=== PATIENT | female | born 1975 | race African-American/Black ===

== ENCOUNTER 2018-04-12 10:37 | Observation (INO) | payer OTHER ==
[2018-04-09 13:10] LABS: BASOPHILS % 0.7 % (0.0-1.0); EOSINOPHILS # (AUTO) 0.1 (0.0-0.4); EOSINOPHILS % 1.2 % (0.0-6.0); HEMATOCRIT 39.9 % (34.2-44.1); HEMOGLOBIN 12.8 g/dL (12.0-16.0); LYMPHOCYTES # (AUTO) 2.5 (1.0-3.2); LYMPHOCYTES % 43.4 % (18.0-39.1); MEAN CORPUSCULAR HEMOGLOBIN 27.8 pg (28-32); MEAN CORPUSCULAR HGB CONC 32.1 g/dL (31-35); MEAN CORPUSCULAR VOLUME 86.6 fL (81-99); MONOCYTES # (AUTO) 0.4 (0.2-0.8); MONOCYTES % 7.4 % (4.4-11.3); NEUTROPHILS # (AUTO) 2.7 (2.1-6.9); NEUTROPHILS % 46.9 % (38.7-80.0); PLATELET COUNT 274 x10e3/uL (140-360); RED BLOOD COUNT 4.61 x10e6/uL (3.6-5.1); RED CELL DISTRIBUTION WIDTH 13.8 % (11.7-14.4)
[2018-04-09 13:11] LABS: CLARITY,URINE SL CLOUDY (CLEAR); COLOR,URINE YELLOW (YELLOW)
[2018-04-09 13:12] LABS: BILIRUBIN,URINE NEGATIVE (NEGATIVE); KETONES,URINE NEGATIVE (NEGATIVE); LEUKOCYTE ESTERASE ,URINE NEGATIVE (NEGATIVE); NITRITE,URINE NEGATIVE (NEGATIVE); PROTEIN,URINE DIPSTICK NEGATIVE (NEGATIVE); URINE UROBILINOGEN 0.2 mg/dL (0.2 - 1)
[2018-04-09 13:27] LABS: ANION GAP 12.5 mmol/L (8-16); BLOOD UREA NITROGEN 12 mg/dL (7-26); BUN/CREATININE RATIO 15 (6-25); CARBON DIOXIDE 27 mmol/L (22-29); CHLORIDE 102 mmol/L (98-107); CREATININE, SERUM 0.81 mg/dL (0.57-1.11); EST GLOMERULAR FILTRATION RATE > 60 ML/MIN (60-); GLUCOSE 94 mg/dL (74-118); POTASSIUM 3.5 mmol/L (3.5-5.1); SODIUM 138 mmol/L (136-145)
[~2018-04-12] VITALS: Ht 167.6 cm; Wt 86.2 kg
[~2018-04-12 10:37] MED LIST: ACTOPLUS MET 11 EACH PO; AMLODIPINE BESY10 MG PO; ASPIRIN81 MG PO; ATORVASTATIN CA40 MG PO; LISINOPRIL40 MG PO; METFORMIN HCL500 MG PO; TANZEUM SQ; TRULICITY INJ; VITAMIN D3 PO
[2018-04-12] MEDS ORDERED: CEFAZOLIN SOD 1 GM/NS 50ML 100 ML IV ONE (10:59)
[2018-04-12] MEDS ORDERED: ESTROGENS CONJUGATED VAGINAL CR 45 GM TUBE PV ONE (12:06)
[2018-04-12] MEDS ORDERED: BUPIVACAINE 0.25%/EPI 30ML SDV INJ ONE (12:06)
[2018-04-12] MEDS ORDERED: VASOPRESSIN INJ 20 UNIT/ML VIAL IV ONE (12:45)
[2018-04-12] MEDS ORDERED: ONDANSETRON HCL INJ 2MG/ML 2ML 2 MG/ML VIAL ONE (15:26)
[2018-04-12] MEDS ORDERED: DEXAMETHASONE SOD PHOS INJ 4 MG/ML VIAL ONE (15:26)
[2018-04-12] MEDS ORDERED: PROPOFOL IV EMULSION 10 MG/ML 20 ML VIAL ONE (15:26)
[2018-04-12] MEDS ORDERED: SEVOFLURANE INHAL SOLN 250 ML PEN BTL ONE (15:26)
[2018-04-12] MEDS ORDERED: ROCURONIUM BROMIDE 10 MG/ML 5ML VIAL ONE (15:26)
[2018-04-12] MEDS ORDERED: PHENYLEPHRINE HCL 1% 10 MG/ML VIAL ONE (15:26)
[2018-04-12] MEDS ORDERED: MORPHINE SULFATE 1 MG/ML 30ML PCA IV PRN (16:00)
[2018-04-12] MEDS ORDERED: KETOROLAC TROMETHAMINE 30 MG/ML VIAL IV PRN (16:00)
[2018-04-12] MEDS ORDERED: DIPHENHYDRAMINE HCL 25 MG CAP PO PRN (16:00)
[2018-04-12] MEDS ORDERED: DOCUSATE SODIUM 100 MG CAP PO PRN (16:00)
[2018-04-12] MEDS ORDERED: ONDANSETRON HCL INJ 2MG/ML 2ML 2 MG/ML VIAL IV PRN (16:00)
[2018-04-12] MEDS ORDERED: ACETAMINOPHEN 325 MG TAB PO PRN (16:00)
[2018-04-12] MEDS ORDERED: SIMETHICONE 80 MG CHEW PO PRN (16:00)
[2018-04-12] MEDS ORDERED: NALOXONE HCL INJ 0.4 MG/ML AMP IV PRN (16:00)
[2018-04-12] MEDS ORDERED: BISACODYL 10 MG SUPP PR PRN (16:00)
[2018-04-12] MEDS ORDERED: FENTANYL CITRATE/PF 100MCG/2 ML INJ ONE ×2 (16:21→18:18)
[2018-04-12] MEDS ORDERED: INSULIN REGULAR, HUMAN 100 UNIT/1 ML 3ML VIAL ONE (16:37)
[2018-04-12] MEDS ORDERED: MORPHINE SULFATE 1 MG/ML 30ML PCA ONE (16:42)
[2018-04-12] MEDS ORDERED: DEXTROSE 50% SYRINGE 50 ML IV PRN (17:00)
[2018-04-12] MEDS: METFORMIN HCL 500 MG TAB PO SCH (17:00)
[2018-04-12 17:47] VITALS: BP 124/72
[2018-04-12 18:05] VITALS: BP 124/72
[2018-04-12] MEDS: LACTATED RINGER'S 1,000 ML IV SCH ×2 (18:17→23:53)
[2018-04-12 20:00] VITALS: BP 111/67
--- NOTE | 2018-04-12 20:36 | NUR ---
Thigh high ALEXANDRA applied to both lower extremities. Abdominal binder is too big for patient, size not available.
[2018-04-12] MEDS: INSULIN REGULAR, HUMAN 100 UNIT/1 ML 3ML VIAL SQ SCH (21:00)
[2018-04-12 21:26] VITALS: BP 111/67
[2018-04-12] MEDS: CEFAZOLIN SOD 2 GM/D5W 50ML 50 ML IV SCH (22:00)
[2018-04-12] MEDS ORDERED: CEFAZOLIN SOD 1 GM VIAL IV SCH (22:00)
--- NOTE | 2018-04-12 23:09 | NUR ---
Encourage to use incentive spirometry and do breathing and coughing exercises when awake. Patient assisted in turning.
[2018-04-13] VITALS: BP 103/60
--- NOTE | 2018-04-13 00:51 | Operative Report ---
DATE OF PROCEDURE: 04/12/2018 SURGEON: Liam Ontiveros MD PREOPERATIVE DIAGNOSES: Dysmenorrhoea, large fibroid uterus, anemia, diabetes, and hypertension. POSTOPERATIVE DIAGNOSES: Dysmenorrhoea, large fibroid uterus, anemia, diabetes, and hypertension. TITLE OF PROCEDURE: Total laparoscopic hysterectomy and bilateral salpingectomy. [employer] JONES: Kennedy Healy MD. ANESTHESIA: General with Dr. Schwartz. INDICATIONS FOR THE OPERATION: The patient is a 42-year-old 3, para 2-0-1-2, status post tubal ligation in 2003, presents with history of a large fibroid uterus that was 18- to 20-week size 4 months ago causing lots of dysmenorrhoea and pelvic pain. She also had anemia with a hemoglobin down to 10 or so. She was given Lupron for 4 months. Uterine size decreased to 12- to 14-week size and she is here for total laparoscopic hysterectomy, possible laparoscopically assisted vaginal hysterectomy and possible total abdominal hysterectomy. Bilateral salpingectomy is planned. The patient does not desire oophorectomy. She is therefore taken to the operating room at this time. FINDINGS OF SURGERY: There was 12- to 14-week size nodular uterus with a 5 cm right lateral fibroid which was subserosal and even to an extent pedunculated. The tubes and ovaries were within normal limits. The uterus was very mobile. DESCRIPTION OF PROCEDURE: The patient was taken to the operating room and placed on the table in the supine position. General anesthesia was administered. The patient was then placed in the lithotomy position. The perineum was prepared and draped in the usual sterile manner as was the abdomen. Pelvic exam revealed a 12- to 14-week size nodular mobile uterus with no adnexal masses except for the right 5-cm fibroid. A Lopez catheter had been placed in the bladder for constant drainage and then the cervix was grasped with a single tooth tenaculum and the VCare was placed in the cervical canal up to a depth of 8 cm after dilation with Rose dilator. The balloon was inflated up to 7 mL and it was then draped for manipulation. The tenaculum was removed and we proceeded to laparoscopy. The acid pump operator changed gloves. Small incision was made just superior to the umbilicus in the midline. The trocar and scope were inserted through the incision into the peritoneal cavity under direct visualization and pneumoperitoneum was created by insufflation of 4 L of carbon dioxide gas and a filling pressure of 8-10 mmHg. Then, second a trocar was placed through a left lower quadrant incision under direct visualization by laparoscopy and the third trocar was placed in the right lower quadrant under direct visualization by laparoscopy. We then visualized the uterus, tubes, and ovaries. The ovaries were within normal limits. The tubes were within normal limits except for status post tubal ligation and the uterus was enlarged, 12- to 14-week size with a 5 cm pedunculated subserosal right-sided myoma. At this point, attention was turned to the left adnexa. The left tube was grasped and the mesosalpinx was then clamped, cauterized twice with a LigaSure instrument and then cut and then the mesosalpinx was further clamped, coagulated, and cut using the LigaSure instrument. We then reached the round ligament, which was clamped, coagulated, and cut. There was good hemostasis in evidence. At this point, we were able to clamp, coagulate, and cut the utero-ovarian ligament and then we opened the anterior peritoneum using the LigaSure instrument, clamping, coagulating, and cutting from round ligament to round ligament, and then with gentle dissection, we dissected the bladder down out of the way. At this point, attention was turned to the right side, where the right tube was grasped and the mesosalpinx was clamped, coagulated twice, and cut using the LigaSure instrument. Then, we took further bites down the mesosalpinx, clamping, coagulating, and cutting to reach the round ligament, which was clamped, coagulated and cut. At this side, we were then able to open the peritoneum anteriorly to where we had joined the previous incision from the left side and we were able to use the laparoscopic tenaculum to grab the fibroid and pull it out of the way for better visualization. At this point, we were able to identify the uterine vessels on each side. We clamped, coagulated multiple times, and cut with the LigaSure instrument. Good hemostasis was evident at the uterine vessels. We pushed up with the VCare. We were able to identify the vaginal cuff. We were able to push the bladder out of the way and dissecting along the lines of the cup. We were able to cut away all the uterine attachments to the peritoneal cavity and to the uterosacral ligaments. Once the uterus was completely free, we removed the VCare and grasped the cervix with 2 Chapin, and at this point, we brought it out partially and then going vaginally, we were able to grasp the fundus of the uterus with a tenaculum and pulled the uterus out gently and brought it out in total with the tubes, uterus, and fibroids. This was then sent to pathology for definitive diagnosis. At this point, we all switched gown and gloves and we proceeded to close the vaginal cuff laparoscopically. The pneumoperitoneum was reinserted. Prior to leaving the vagina, we had placed a bulb suction to obstruct the air coming out of the peritoneal cavity. At this point, Dr. Healy used the Endo Stitch and stitched the vaginal cuff posterior to anterior placing his stitches and tying them off and 5 stitches were required to close the cuff. There was good hemostasis in evidence of the cuff. We then irrigated and then suctioned. At this point, we filled the bladder through the Lopez catheter with saline and observed the inflation laparoscopically. There was no evidence of any urinary leakage and the bladder was able to fill completely, and then Dr. Healy proceeded with cystoscopy. Using the laparoscope, he visualized the entire bladder and found no evidence of any injury to the bladder and then it took us about 10 minutes watching the ureters, but we did see bilateral spillage of urine from the ureters. Both ureters appeared patent, and at this point, we proceeded to close. Dr. Healy irrigated the vagina and placed a new Lopez catheter and then I proceeded to close the skin incisions. First, we removed all air and instruments from the abdomen, then the skin incisions were closed with inverted stitches of 4-0 Monocryl suture. There were no complications noted. Estimated blood loss was 100 mL. The patient tolerated the procedure well, was transferred from the operating room to the recovery room in stable condition. Liam Ontiveros MD [facility] /[id number] cc: Salvador Perales MD MTDD
[2018-04-13 04:00] VITALS: BP 124/72
[2018-04-13] MEDS: CEFAZOLIN SOD 2 GM/D5W 50ML 50 ML IV SCH ×2 (05:51→12:34)
--- NOTE | 2018-04-13 05:51 | NUR ---
D/C simental as ordered.
[2018-04-13 06:39] LABS: BASOPHILS % 0.2 % (0.0-1.0); HEMATOCRIT 34.9 % (34.2-44.1); HEMOGLOBIN 11.5 g/dL (12.0-16.0); LYMPHOCYTES # (AUTO) 1.2 (1.0-3.2); LYMPHOCYTES % 12.1 % (18.0-39.1); MEAN CORPUSCULAR HEMOGLOBIN 28.4 pg (28-32); MEAN CORPUSCULAR VOLUME 86.2 fL (81-99); MONOCYTES # (AUTO) 0.6 (0.2-0.8); MONOCYTES % 5.9 % (4.4-11.3); NEUTROPHILS # (AUTO) 8.1 (2.1-6.9); NEUTROPHILS % 81.4 % (38.7-80.0); PLATELET COUNT 248 x10e3/uL (140-360); RED BLOOD COUNT 4.05 x10e6/uL (3.6-5.1); RED CELL DISTRIBUTION WIDTH 13.9 % (11.7-14.4)
[2018-04-13 07:05] LABS: ANION GAP 13.3 mmol/L (8-16); BLOOD UREA NITROGEN 8 mg/dL (7-26); BUN/CREATININE RATIO 9 (6-25); CALCIUM 9.1 mg/dL (8.4-10.2); CARBON DIOXIDE 24 mmol/L (22-29); CHLORIDE 102 mmol/L (98-107); CREATININE, SERUM 0.86 mg/dL (0.57-1.11); EST GLOMERULAR FILTRATION RATE > 60 ML/MIN (60-); GLUCOSE 135 mg/dL (74-118); POTASSIUM 4.3 mmol/L (3.5-5.1); SODIUM 135 mmol/L (136-145)
[2018-04-13] MEDS: INSULIN REGULAR, HUMAN 100 UNIT/1 ML 3ML VIAL SQ SCH ×2 (07:30→11:30)
[2018-04-13 08:36] VITALS: BP 121/63
[2018-04-13] MEDS ORDERED: NON-FORMULARY MEDICATION (Lisinopril 20 MG) PO SCH (09:00)
[2018-04-13] MEDS ORDERED: AMLODIPINE BESYLATE 10 MG TAB PO SCH (09:00)
[2018-04-13] MEDS ORDERED: LISINOPRIL 20 MG TAB PO SCH (09:00)
[2018-04-13 09:30] VITALS: BP 121/63
[2018-04-13] MEDS: METFORMIN HCL 500 MG TAB PO SCH (09:30)
--- NOTE | 2018-04-13 09:30 | NUR ---
assessment complete no distress noted, updated on poc vocied understanding, denies pain at this time, ivf infusing to l fa 20g no ss of infiltration noted, pt up to bathroom with assistance, voided clear yellow urine, 3 trochar sites to abdomen c/d/i, no other co voiced call light in reach will continue ot monitor
[2018-04-13] MEDS ORDERED: NAPROXEN 250 MG TAB PO PRN (10:15)
[2018-04-13] MEDS ORDERED: NAPROXEN250 MG PO (12:27)
[2018-04-13 12:41] VITALS: BP 120/77
== END 2018-04-13 14:54 | disposition home or self-care (01) ==
LOC: OR 10:37 → PACU V 16:13 → MED/SURG 17:31
PROVIDERS: ADMIT Obstetrics & Gynecology; ATTEND Obstetrics & Gynecology
DX: D25.2 Subserosal leiomyoma of uterus (principal); N94.6 Dysmenorrhea, unspecified; E11.9 Type 2 diabetes mellitus without complications; I10 Essential (primary) hypertension; Z01.810 Encounter for preprocedural cardiovascular examination; Z01.812 Encounter for preprocedural laboratory examination; D64.9 Anemia, unspecified; N72 Inflammatory disease of cervix uteri; Z79.84 Long term (current) use of oral hypoglycemic drugs
CPT/HCPCS: 36415 ×3; 58573; 80048 ×2; 81003; 82948 ×2; 84702; 85025 ×2; 86850; 86900; 88307; 93005; G0378 ×2; J0690 ×3; J1100; J1817; J2270; J2370; J2405; J2704; J7121 ×2

== ENCOUNTER → 2018-05-24 | Day surgery (SDC) | payer OTHER ==
[~2018-05-24] MED LIST changes: +ASPIR 8181 MG PO; +FENTANYL CITRATE/PF 100MCG/2 ML INJ ONE; +GLUCAGON FOR INJ 1 MG VIAL ONE; +HYOSCYAMINE SULFATE 0.5 MG/ML INJ ONE; +MIDAZOLAM HCL 2 MG/2 ML VIAL ONE; +NAPROXEN250 MG PO; +PHENYLEPHRINE HCL 1% 10 MG/ML VIAL ONE; +PROPOFOL IV EMULSION 10 MG/ML 50 ML VIAL ONE
[2018-05-24 10:40] VITALS: BP 102/80
--- NOTE | 2018-05-24 17:13 | Operative Report ---
DATE OF PROCEDURE: 05/24/2018 SURGEON: Easton Whitmore MD PROCEDURE: Colonoscopy and polypectomy. INDICATIONS FOR COLONOSCOPY: Surveillance colonoscopy, personal history of colon polyps, mother with colon cancer. MEDICATIONS: The patient was done under MAC, please see anesthesiologist's note. PROCEDURE IN DETAIL: With the patient in left lateral decubitus position, flexible fiberoptic Olympus colonoscope was inserted into the rectum with ease and advanced all the way to the cecum. It was then withdrawn slowly and mucosa overlying the cecum appeared to be within normal limits. Some minimal diverticular disease was noted throughout and it was more prominent in the left colon. Two polyps were hot biopsied from the transverse colon. Three polyps were hot biopsied from the sigmoid and two polyps were hot biopsied from the rectum. The scope was then retroflexed into the distal rectum and small internal hemorrhoids were noted, none of which was actively bleeding. The scope was then straightened out, it was subsequently withdrawn. The patient tolerated procedure well. IMPRESSION: 1. Diverticulosis. 2. Transverse colon polyps x2, hot biopsied. 3. Sigmoid colon polyps x3, hot biopsied. 4. Rectal polyps x2, hot biopsied. 5. Internal hemorrhoids, none actively bleeding. A total of seven polyps were removed. PLAN: Follow up histology. Initiate high-fiber, low-fat diet. Initiate high-fiber supplement. The patient might benefit from a followup colonoscopy in 3 years. Easton Whitmore MD [facility] [place] [facility] [place][id number] cc: Salvador Perales MD
== END | disposition home or self-care (01) ==
LOC: OR 07:09
PROVIDERS: ATTEND Internal Medicine Gastroenterology
DX: Z09 Encounter for follow-up examination after completed treatment for conditions other than malignant neoplasm (principal); D12.3 Benign neoplasm of transverse colon; K62.1 Rectal polyp; K57.30 Diverticulosis of large intestine without perforation or abscess without bleeding; K64.8 Other hemorrhoids; I10 Essential (primary) hypertension; E11.9 Type 2 diabetes mellitus without complications; Z79.82 Long term (current) use of aspirin; Z79.84 Long term (current) use of oral hypoglycemic drugs; Z80.0 Family history of malignant neoplasm of digestive organs
CPT/HCPCS: 36415; 45384; 82948; J1610; J1980; J2250; J2370; J2704; 45378